=== PATIENT | male | born 1950 | race Two or more races ===

== ENCOUNTER → 2020-09-25 | Outpatient (CLI) | payer MEDICARE ==
[~2020-09-25] MED LIST: REGADENOSON 0.4 MG/5 ML SYRINGE ONE
== END | disposition home or self-care (01) ==
LOC: CFH 06:38
PROVIDERS: ATTEND Internal Medicine Cardiovascular Disease
DX: I08.0 Rheumatic disorders of both mitral and aortic valves (principal); I21.29 ST elevation (STEMI) myocardial infarction involving other sites; I25.119 Atherosclerotic heart disease of native coronary artery with unspecified angina pectoris
CPT/HCPCS: 78452; 93017; 93306; A9502; J2785

== ENCOUNTER 2020-11-19 05:41 | Emergency (ER) | payer MEDICARE ==
[~2020-11-19] VITALS: Ht 157.5 cm; Wt 93.0 kg
--- NOTE | 2020-11-19 06:00 | NUR ---
INITIAL PT CONTACT. PT PRESENTS TO THE ED C/O "HIGH BP AND SOME LEFT SIDED CHEST PRESSURE. IT STARTED THIS MORNING WHEN I GOT UP TO USE THE BATHROOM." PT SITTING UPRIGHT ON MESFIN CHAN VSS. PT PLACED ON CONTINUOUS MONITORING, CALL LIGHT AND BELONGINGS WITHIN REACH. FAMILY AT BEDSIDE. AWAITING ERP.
[2020-11-19] MEDS ORDERED: ASPIRIN 81 MG TABLET CHEW ONE (06:16)
[2020-11-19] MEDS ORDERED: NITROGLYCERIN SINGLE TAB 0.4 MG SL ONE (06:16)
[2020-11-19] MEDS ORDERED: SODIUM CHLORIDE FLUSH 10ML SYR IVF ONE (06:30)
[2020-11-19] MEDS ORDERED: ASPIRIN 81 MG TABLET CHEW PO ONE (06:30)
[2020-11-19] MEDS ORDERED: NITROGLYCERIN SINGLE TAB 0.4 MG SL PRN (06:30)
--- NOTE | 2020-11-19 06:43 | NUR ---
REPORT TO SHREYA DOWNS
[2020-11-19 06:46] LABS: ALBUMIN 3.4 g/dL (3.4-5.0); ANION GAP 6 mmol/L (5-15); CALCIUM 8.7 mg/dL (8.5-10.1); CHLORIDE 101 mmol/L (98-107)
[2020-11-19 06:47] LABS: BASOPHILS % (AUTO) 1 % (0-1); EOSINOPHILS % (AUTO) 4 % (1-7); LYMPHOCYTES % (AUTO) 19 % (22-44); MEAN CORPUSCULAR HEMOGLOBIN 27.3 pg (27.5-34.5); MEAN CORPUSCULAR HGB CONC 32.8 g/dL (33.2-36.2); MEAN PLATELET VOLUME 9.4 fL (7.4-10.4); MONOCYTES % (AUTO) 9 % (2-9); NEUTROPHILS % (AUTO) 68 % (42-75); PLATELET COUNT 250 x10^3/uL (130-400); RED BLOOD COUNT 4.65 x10^6/uL (4.38-5.82); RED CELL DISTRIBUTION WIDTH 16.4 % (9.4-14.8)
[2020-11-19 06:52] LABS: TROPONIN I < 0.015 ng/mL (0.000-0.045)
--- NOTE | 2020-11-19 06:54 | NUR ---
Report from HIMANSHU Redman. Pt on monitor NSR no ectopy no st elevation. Has no cp now. VSS
--- NOTE | 2020-11-19 07:31 | NUR ---
Pt up ambulatory to bathroom, denies cp/sob.
[2020-11-19] MEDS ORDERED: SODIUM CHLORIDE FLUSH 10ML SYR IVF PRN (08:30)
--- NOTE | 2020-11-19 08:49 | NUR ---
Report to HIMANSHU Santamaria
--- NOTE | 2020-11-19 08:54 | NUR ---
REPORT FROM HIMANSHU CASH. PT RESTING IN [facility], MONITORING IN PLACE, NADN AT THIS TIME, TAZ.
[2020-11-19 09:36] VITALS: BP 129/59
--- NOTE | 2020-11-19 10:32 | NUR ---
PT STATES HE DOES NOT WANT TO STAY TO BE ADMITTED AND FEELS BETTER. PT AND DAUGHTER VERBALIZED UNDERSTANDING OF AMA AND THE IMPORTANCE OF COMING BACK IF SYMPTOMS GET WORSE. PT AMBULATED OUT OF ED STEADILY WITH DAUGHTER. EDMD AWARE.
== END 2020-11-19 10:32 ==
LOC: ED 06:30 → UNDOADMIN 08:30 → EDIP 08:30 → UNDODISIN 10:32 → ED 10:32
DX: R07.2 Precordial pain (principal); I20.9 Angina pectoris, unspecified; E11.9 Type 2 diabetes mellitus without complications
CPT/HCPCS: 36415; 71045; 80048; 82040; 83880; 84484; 85025; 93005; 99285